=== PATIENT | female | born 1935 | race Hispanic/Latino ===

== ENCOUNTER 2017-08-23 02:01 | Observation (INO) | payer MEDICARE, OTHER ==
[2017-08-23] MEDS ORDERED: Acetaminophen 325 MG TAB ONE (05:02)
[2017-08-23 06:53] VITALS: BMI 23.5
[2017-08-23] MEDS ORDERED: Ketorolac Tromethamine 30 MG/ML VIAL IVP PRN (09:09)
[2017-08-23] MEDS ORDERED: Bisacodyl 10 MG SUPP PR PRN (09:12)
[2017-08-23] MEDS ORDERED: Bisacodyl 5 MG TAB PO PRN (09:12)
[2017-08-23] MEDS ORDERED: Acetaminophen 650 MG Suppository PR PRN (09:12)
[2017-08-23] MEDS ORDERED: Ketorolac Tromethamine 30 MG/ML VIAL IVP SCH (09:15)
--- NOTE | 2017-08-23 10:34 | ULT ---
BILATERAL CAROTID DUPLEX ULTRASOUND: DATE: 08/23/17 HISTORY: CVA. TECHNIQUE: Kaba scale ultrasound with color flow and spectral Doppler imaging of the extracranial carotid artery systems performed bilaterally. FINDINGS: There is plaque formation on both sides. The peak systolic velocity in the right ICA measures 177 cm/second with an end-diastolic velocity of 18 cm/second and a systolic ratio of 3.3. The peak systolic velocity in the left ICA measures 66 cm/second with an end-diastolic velocity of 15 cm/second and a systolic ratio of 1.06. Flow in both vertebral arteries remains antegrade. IMPRESSION: Moderate (50-69%) stenosis involving the right ICA. POS: [facility]
--- NOTE | 2017-08-23 11:12 | HP ---
PRIMARY CARE PHYSICIAN: Unknown. CHIEF COMPLAINT: Dizziness. HISTORY OF PRESENT ILLNESS: Ms. Nolasco is a pleasant 82-year-old lady who was seen at [facility] on 08/23/2017. She lives in [place] with her daughter. She was visiting [facility] & manorthe r daughter in [place], who is present by the bedside. The daughter by the bedside does not know her medical history. History was obtained from review of medical record as well as discussion with the emergency room physician. The patient mainly speaks Welsh, and her daughter was the automotive generator repairer. Two nights ago, she complained of dizziness and generalized weakness. She was also less responsive. The next morning she felt fine. Yesterday around 7:00 p.m. she felt dizzy again. She was unable to describe the dizziness further. It is present both with sitting up and lying down. With both episo lucian of dizziness, she tried to induce vomiting because she felt nauseous, but could not vomit. She denies any chest pain or shortness of breath. She denies any fevers or chills. REVIEW OF SYSTEMS: All other systems reviewed and found to be negative. PAST MEDICAL HISTORY: Coronary artery disease, status post angioplasty, diabetes mellitus type 2 and Alzheimer's disease. PAST SURGICAL HISTORY: Endarterectomy and right knee surgery. SOCIAL HISTORY: No history of tobacco use, alcohol use or recreational drug use. FAMILY HISTORY: Significant for cerebrovascular accident in her sister. CODE STATUS: Due to language barrier, I could not discuss code status. This will need to be address ed later. ALLERGIES: No known drug allergies. CURRENT MEDICATIONS: Metformin 500 mg daily, desvenlafaxine 50 mg daily, bupropion 150 mg daily, Santosh vix 75 mg daily. PHYSICAL EXAMINATION: GENERAL: Ms. Nolasco is awake and alert, not in acute distress. VITAL SIGNS: Blood pressure is 130/75, pulse 76, respiratory rate 16, and oxygen saturations are 94% on room air. She is afebrile. EYES: No scleral icterus. No conjunctival pallor. ENT: Moist mucosal membranes, no oropharyngeal erythema or exudates. NECK: Supple, nontender, normal range of movement, trachea is midline. RESPIRATORY: Accessory muscles of breathing are not active. Chest wall movements are symmetric bila terally. LUNGS: Clear to auscultation without wheeze, rhonchi or crepitations. CARDIOVASCULAR: S1 and S2 are heard, regular. She has a systolic ejection murmur in the aortic area , radiating to carotids. Peripheral pulses palpable. No carotid bruit, no pericardial rub. ABDOMEN: Soft, nontender, bowel sounds are heard, no hepatomegaly, no splenomegaly. NEUROLOGIC: Cranial nerves II-XII intact, deep tendon reflexes 2+, no focal motor or sensory deficit s. SKIN: No rashes or subcutaneous nodules. MUSCULOSKELETAL: Power is 5/5 in all 4 extremities. LYMPHATIC: No cervical lymphadenopathy. PSYCHIATRIC: Normal mood, normal affect. The patient is oriented to person only, not to place or ti me. LABORATORY DATA: Ms. Nolasco's labs and investigations were reviewed. I reviewed her electrocardiog adela, which shows normal sinus rhythm with a right bundle branch block. I also reviewed her noncontra st CT scan of the brain, which did not show any acute abnormality. She has an unremarkable CBC, unre markable comprehensive metabolic profile, normal lipase, normal troponin and urinalysis that is posit uri for protein, ketones, urobilinogen and large amount of leukocyte esterase. ASSESSMENT AND PLAN: Ms. Nolasco is a pleasant 82-year-old lady who was seen at [facility] on 08/23/2017. Her problem list includes: 1. Dizziness: Etiology unclear at this time. The patient will be admitted to the hospital for furt her workup, including stroke workup. If negative, she may need to see ENT Service as outpatient. We will continue her on aspirin and statin at this time. 2. Urinary tract infection. The patient will be started on antibiotic, we will follow urine culture s. 3. Diabetes mellitus. Start Accu-Cheks and insulin sliding scale. 4. Coronary artery disease. The patient denies any chest pain, troponin I is normal. Coronary judy ry disease appears to be stable. 5. Alzheimer's disease: Appears stable. Many thanks for allowing me to participate in your patient's care. Please feel free to contact me wi th any questions or concerns. LEVEL OF RISK: High. LEVEL OF COMPLEXITY: High.
[2017-08-23] MEDS: cefTRIAXone\\ROCEPHIN 1 GM in Sodium Chloride 0.9% 100 ML IVPB SCH (14:02)
[2017-08-23] MEDS: Acetaminophen 325 MG TAB PO PRN ×3 (14:14→23:50)
--- NOTE | 2017-08-23 17:11 | CON ---
DATE OF CONSULTATION: 08/23/2017 REFERRING PROVIDER: Dr. Jorge Acuña. REASON FOR CONSULTATION: Dizziness. HISTORY OF PRESENT ILLNESS: Ms. Nolasco is a pleasant 82-year-old female who has been consu lted for evaluation of dizziness. History is obtained from daughter who was present at bedside. Juanita hampton is a non-Korean speaking and thus the translation is being provided by her daughter jesi finch at bedside. Daughter reports that she lives with her other daughter in [place] who is her prim dio provider. She has been visiting another daughter in [place]. She had complained of having dizz iness about 2 days ago. She described her dizziness as having spinning around sensation. This came on when she was transferring from sitting in the bed to a wheelchair. This lasted for approximately 2 hours and then resolved. She also became nauseous with this episode. There was no complaint of an y double vision, ptosis, blurry vision, hearing changes, tinnitus, chest pain, palpitation, numbness, tingling, or worsening weakness. She does have a history of stroke in the past, which has left her confined to a wheelchair. She is able to transfer from bed to wheelchair with assistance; however, n ot able to walk independently. She has not had any recurrence of dizziness since being admitted to [facility]. PAST MEDICAL HISTORY: Significant for hypertension, diabetes, coronary artery disease, Alzheimer's d isease. PAST SURGICAL HISTORY: Significant for endarterectomy and right knee surgery. SOCIAL HISTORY: She does not smoke cigarettes, drink alcohol or use illicit drugs. CURRENT MEDICATIONS: Please review MAR. ALLERGIES: No known drug allergies. REVIEW OF SYSTEMS: As mentioned above in the HPI, otherwise negative. PHYSICAL EXAMINATION: VITAL SIGNS: Blood pressure 131/60, pulse of 63, temperature of 97.6, respirations of 16, O2 sats of 97% on room air. GENERAL: Well-developed, well-nourished female in no apparent distress. RESPIRATORY: Clear to auscultation bilaterally. CARDIOVASCULAR: Regular rate and rhythm. NEUROLOGIC: Mental status: Patient is awake, alert, and oriented x2. Speech and language difficult to evaluate. However, per daughter, it appears normal in her baseline. Cranial nerves: Pupils are 3 mm and reactive. Visual abebe are full to threat. External muscles are intact. No nystagmus no jayden. Face is symmetric. Tongue and uvula are midline. Motor exam showed normal tone and bulk with 5/5 strength in both upper extremities. She has a strength of 4/5 in both lower extremities. She west s an antalgic weakness in the right lower extremity due to right knee replacement. Sensory: Sensati on is intact and symmetric. Deep tendon reflexes 1+ reflex in both upper and lower extremities. Bab inski: Plantar responses flexion bilaterally. Coordination intact to olvhtf-[id number] tapping beau aterally. LABORATORY DATA: Reviewed, which included CBC, CMP, urinalysis, which is significant for glucose of 224. WBC on urinalysis with large leukocyte esterase and negative nitrites. Otherwise, unremarkable . IMAGING DATA: CT head without contrast was reviewed, which showed no acute intracranial abnormality. Carotid Doppler results were reviewed, which showed moderate stenosis involving the right ICA. IMPRESSION: 1. Dizziness, likely benign positional vertigo. 2. Right internal carotid artery stenosis. PLAN: Ms. Nolasco is an 82-year-old female who presented with the episodes of dizziness. B ased on her description, these spells are likely benign positional vertigo. At this time, I would re commend obtaining MRI brain without contrast. I would recommend consulting Cardiovascular Surgery fo r moderate stenosis noted on the right ICA, for which I will recommend consulting Cardiovascular Surg robert for further recommendations. The patient is ready to be discharged home when medically ready. Thank you for your consultation.
[2017-08-23] MEDS ORDERED: Dextrose 5% in Water 1,000 ML IV PRN (18:32)
[2017-08-23] MEDS ORDERED: HumaLOG 300 UNITS/3 ML VIAL SC PRN (18:32)
[2017-08-23] MEDS ORDERED: Dextrose 50% Abboject 50 ML SYRINGE IVP PRN (18:32)
[2017-08-23] MEDS ORDERED: Melatonin 3 MG TAB PO PRN (18:32)
[2017-08-23] MEDS ORDERED: Atorvastatin Calcium 10 MG TAB PO SCH (21:00)
[2017-08-24 05:20] LABS: #Eosinphils 0.2 thou/uL (0.0-0.7); #Lymphocytes 0.9 thou/uL (1.20-3.40); #Monocytes 0.2 thou/uL (0.11-0.59); %Basophils 1.3 % (0.0-1.0); %Eosinophils 4.7 % (0.0-10.0); %Lymphocytes 27.7 % (21.0-51.0); %Monocytes 7.2 % (0.0-10.0); %Neutrophils 59.1 % (42.0-75.0); Hemoglobin 12.7 g/dL (12.0-16.0); Mean Corpuscular HGB CONC 33.6 g/dL (32.0-36.0); Mean Corpuscular Hemoglobin 31.1 pg (27.0-31.0); Mean Corpuscular Volume 92.6 fL (78.0-98.0); Mean Platelet Volume 7.5 fL (7.4-10.4); Platelet Count 182 thou/uL (130-400); RBC Distribution Width 13.2 % (11.5-14.5); Red Blood Cell (RBC) Count 4.09 mill/uL (4.20-5.40); White Blood Cell (WBC) Count 3.3 thou/uL (4.8-10.8)
[2017-08-24 05:40] LABS: Anion Gap 12 mmol/L (10-20); BUN (Urea Nitrogen) 24 mg/dL (9.8-20.1); Calc. Creatinine Clearance 56 mL/min (70-130); Calcium 9.2 mg/dL (7.8-10.44); Carbon Dioxide 27 mmol/L (23-31); Cardiac Risk 2.8 (Less than 4.5); Chloride 106 mmol/L (98-107); Cholesterol 165 mg/dl (< 200 Desired); Estimated GFR-MDRD 79; Glucose 116 mg/dL (83-110); HDL Cholesterol 59 mg/dL (>60 Neg Risk); LDL Cholesterol, Calculated 90 mg/dL; Sodium 141 mmol/L (136-145); Triglycerides 80 mg/dL (Less than 150)
[2017-08-24] MEDS ORDERED: Enoxaparin Sodium 40 MG/0.4 ML SYRINGE SC SCH (09:00)
[2017-08-24] MEDS ORDERED: Aspirin 325 mg Enteric Coated Tablet PO SCH (09:00)
--- NOTE | 2017-08-24 11:57 | MRI ---
MRI OF THE BRAIN WITHOUT CONTRAST: Comparison: 08-22-17 History: Dizziness, nausea, stroke. Technique: Multiplanar, multisequence MRI images were obtained in the brain without contrast. FINDINGS: There is scattered foci of high T2 and FLAIR signal in the subcortical and periventricular white daphney er, likely secondary to small vessel ischemic disease. No restricted diffuse seen to suggest an acute infarction. There is no evidence of hydrocephalus, intracranial hemorrhage, or extraaxial fluid collection. The e xpected flow voids are present. The corpus callosum, pituitary, and craniocervical junction are unrem arkable. The calvarium and overlying soft tissues are unremarkable. The visualized paranasal sinuses and masto id air cells are well aerated. IMPRESSION: 1. No evidence of acute intracranial abnormality. 2. Small vessel ischemic disease. POS: [facility]
[2017-08-24] MEDS: cefTRIAXone\\ROCEPHIN 1 GM in Sodium Chloride 0.9% 100 ML IVPB SCH (12:26)
[2017-08-24 13:36] VITALS: BP 110/49; TEMP 98.3
--- NOTE | 2017-08-24 23:44 | DIS ---
DATE OF ADMISSION: 08/23/2017 DATE OF DISCHARGE: 08/24/2017 CONDITION AT THE TIME OF DISCHARGE: Stable and improved. DISCHARGE DISPOSITION: Home with home health, back to her daughter in [place]. PROCEDURES DONE IN THE HOSPITAL: 1. Carotid Doppler ultrasound which shows moderate stenosis in the right ICA. 2. MRI of the brain which is negative for any acute CVA. Shows chronic small vessel ischemic change s. No hemorrhage, no mass effect. DISCHARGE MEDICATIONS: Remain the same as admission medication. Please see H and P. Nitrofurantoin 100 mg q.i.d. for 4 days. CONSULTATIONS: Neurology, Dr. Denae Givens. HISTORY OF PRESENTING ILLNESS: Ms. Nolasco is a pleasant 82-year-old female with past medical histor y of coronary artery disease, diabetes, Alzheimer's and history of CVA in the past, who presented to the emergency room with complaints of dizziness. She is visiting her daughter locally and complained of dizziness and generalized weakness and was somewhat lethargic. She was brought to the emergency room for this. Upon presentation, she was hemodynamically stable with a blood pressure of 130/75, pu lse of 76 and adequate oxygen saturation 94% on room air. Her labs were normal. Her EKG showed righ t bundle branch block, noncontrast CT done in the ER showed no acute abnormality. Urinalysis was pos itive for large amount of leukocyte esterase. She was admitted with a presumptive diagnosis of dizzi ness to rule out stroke. Please see admission history and physical for further details. HOSPITAL COURSE: The patient underwent consultation with Neurology, Dr. Denae Givens and after his ass essment, he recommended that her symptoms are likely secondary to benign positional vertigo. He joanna mmended carotid Doppler ultrasound and MRI which were done. Carotid Doppler showed moderate right-si ded stenosis. MRI was negative for any infarction or mass or hemorrhage. I discussed the finding of the carotid Doppler ultrasound with her daughter who outright refused any further investigation or any possibility of surgery in the future. She wanted her mother to go back home to [place]. The patient was seen and examined and is hemodynamically stable at her baseline. Home health has almassimo ahndy been arranged for them in the outpatient setting which she will resume. Stroke has been ruled o ut. She will be discharged under the care of her daughter. All questions were answered and discharg e plan was discussed with the patient and her family who verbalized understanding. Her urine culture is pending at this time. She was started empirically on nitrofurantoin. PHYSICAL EXAMINATION: VITAL SIGNS: This morning, temperature 98.3, pulse of 61, respirations 20, saturating 98% on room ai r, blood pressure 110/49. GENERAL: No acute distress, awake, alert, oriented x3, working with the speech therapist. CHEST: Clear to auscultation bilaterally without any wheezing, rales or rhonchi. CARDIOVASCULAR: Rate and rhythm is regular without any murmur, rubs or gallops. NEUROLOGIC: Limited because of some dementia. There is no obvious facial droop. She has a 4/5 stre ngth in both lower extremities and 5/5 strength in both upper extremities. Sensation is intact. DTR s are +1 bilaterally. No dysdiadochokinesia. LABORATORY DATA: 1. Pending labs, urine culture. 2. Lipid panel was within normal limit. The patient and family are instructed to follow up with primary care physician in 1-2 weeks and they verbalized understanding.
--- NOTE | 2017-08-26 12:05 | EKG ---
Test Reason : Blood Pressure : / mmHG Vent. Rate : 079 BPM Atrial Rate : 086 BPM P-R Int : 000 ms QRS Dur : 150 ms QT Int : 422 ms P-R-T Axes : 000 134 -04 degrees QTc Int : 483 ms Normal sinus rhythm Right bundle branch block , plus right ventricular hypertrophy T wave abnormality, consider inferior ischemia Abnormal ECG Confirmed by BC LANGSTON, BARBARA Garcia ([id number]), managing editor [address] ([id number]) on 08/26/2017 12:05:08 PM Referred By: Confirmed By:BARBARA YANCEY MD
== END 2017-08-24 14:28 | disposition home or self-care (01) ==
LOC: ERS 02:01 → 2SE 06:17
PROVIDERS: ADMIT Hospitalist; ATTEND Hospitalist
DX: R42 Dizziness and giddiness (principal); I25.10 Atherosclerotic heart disease of native coronary artery without angina pectoris; E11.9 Type 2 diabetes mellitus without complications; G30.9 Alzheimer's disease, unspecified; F02.80 Dementia in other diseases classified elsewhere, unspecified severity, without behavioral disturbance, psychotic disturbance, mood disturbance, and anxiety; N39.0 Urinary tract infection, site not specified; I65.21 Occlusion and stenosis of right carotid artery; Z79.84 Long term (current) use of oral hypoglycemic drugs; Z79.02 Long term (current) use of antithrombotics/antiplatelets; Z79.899 Other long term (current) drug therapy
CPT/HCPCS: 70551; 80048; 80061; 82962 ×2; 85025; 87086; 93005; 93880; 94760; 96365; 96372; 96375; 96376; 97139 ×3; 97530 ×2; 99285; G0378; G8978; G8979; G8980; G8987; G8988; G8989; 36415; 36416; A4216; G8996-GN-CK; G8997-GN-CJ; J0696; J1650; J1885; J7050